=== PATIENT | female | born 1975 | race Caucasian/White ===

== ENCOUNTER → 2017-09-12 | Outpatient (CLI) | payer OTHER ==
[~2017-09-12] MED LIST: MELO-84 PO; PRENTAB26 PO
== END | disposition home or self-care (01) ==
LOC: C.PAPS 13:43
PROVIDERS: ATTEND Obstetrics & Gynecology
DX: Z01.419 Encounter for gynecological examination (general) (routine) without abnormal findings (principal); N87.1 Moderate cervical dysplasia